=== PATIENT | male | born 1945 | race Caucasian/White ===

== ENCOUNTER 2020-08-15 16:31 | Inpatient (IN) ==
[2020-08-15] MEDS ORDERED: ONDANSETRON 4 MG/2 ML VIAL IV STA (17:27)
[2020-08-15] MEDS ORDERED: MORPHINE 4 MG/1 ML VIAL IV ONE (17:27)
[2020-08-15 18:27] LABS: Basophils # 0.1 10*3/uL (0.0-0.2); Basophils % 0.7 % (0.0-0.8); Eosinophils # 0.1 10*3/uL (0.0-0.87); Eosinophils % 1.1 % (0.00-10.9); Hematocrit 51.1 VOL% (42.0-52.0); Hemoglobin 16.8 GM/DL (14.0-18.0); Immature Granulocytes % 0.4 %; Immature Granulocytes Absolute 0.04 #; Lymphocytes # 1.4 10*3/uL (1.4-4.0); Lymphocytes % 15.7 % (21.2-54.2); Mean Corpuscular HGB Conc 32.9 GM/DL (32-36); Mean Corpuscular Volume 87.5 FL (87-102); Mean Platelet Volume 10.5 FL (9.6-12.0); Monocytes % 7.2 % (1.7-12.7); Neutrophils % 74.9 % (38.7-73.9); Platelet Count 360 T/CUMM (130-400); Red Blood Count 5.84 MC/CUMM (3.8-5.5); Red Cell Distribution Width 13.7 % (9.3-17.3); White Blood Count 9.1 T/CUMM (4-12)
[2020-08-15 18:35] LABS: INR 1.2; PT Patient Result 12.4 SECS (9.8-11.9); Partial Thromboplastin Time 25.4 SECS (23.9-33.8)
[2020-08-15 18:41] LABS: Calcium 9.7 MG/DL (8.5-10.1); Osmolality,Calculated 286.1 MOS/KG (273-304)
[2020-08-15] MEDS ORDERED: DEXTROSE 50% 25 GM/50 ML VIAL IV PRN (19:11)
[2020-08-15] MEDS ORDERED: GLUCAGON 1 MG VIAL IM PRN (19:11)
[2020-08-15] MEDS ORDERED: NON-FORMULARY MEDICATION (Naloxegol [Movantik] 25 mg Tablet) PO PRN (19:32)
[2020-08-15] MEDS ORDERED: BENZOCAINE/BUTAMBEN/TETRACAINE SPRAY 20 GM CAN TOP ONE (19:35)
[2020-08-15] MEDS: MORPHINE 4 MG/1 ML VIAL IV PRN (21:12)
[2020-08-15] MEDS: SODIUM CHLORIDE 0.45% 1,000 ML IV SCH (21:43)
[2020-08-15] MEDS: carvediloL 12.5 MG TABLET PO SCH (21:44)
[2020-08-16] MEDS: MORPHINE 4 MG/1 ML VIAL IV PRN ×2 (01:12→07:42)
[2020-08-16] MEDS: ONDANSETRON 4 MG/2 ML VIAL IV PRN (03:25)
[2020-08-16 05:39] LABS: Basophils % 0.5 % (0.0-0.8); Eosinophils # 0.1 10*3/uL (0.0-0.87); Eosinophils % 1.2 % (0.00-10.9); Hematocrit 48.4 VOL% (42.0-52.0); Hemoglobin 15.9 GM/DL (14.0-18.0); Immature Granulocytes % 0.5 %; Immature Granulocytes Absolute 0.04 #; Lymphocytes # 1.5 10*3/uL (1.4-4.0); Lymphocytes % 18.1 % (21.2-54.2); Mean Corpuscular HGB Conc 32.9 GM/DL (32-36); Mean Corpuscular Volume 88.3 FL (87-102); Mean Platelet Volume 10.6 FL (9.6-12.0); Monocytes % 8.3 % (1.7-12.7); Neutrophils % 71.4 % (38.7-73.9); Platelet Count 305 T/CUMM (130-400); Red Blood Count 5.48 MC/CUMM (3.8-5.5); Red Cell Distribution Width 13.4 % (9.3-17.3); White Blood Count 8.2 T/CUMM (4-12)
[2020-08-16 05:53] LABS: Calcium 9.5 MG/DL (8.5-10.1); Osmolality,Calculated 286.1 MOS/KG (273-304); Risk Ratio 6.08; VLDL CHOLESTEROL 29.4 MG/DL
[2020-08-16] MEDS: SODIUM CHLORIDE 0.45% 1,000 ML IV SCH ×3 (06:35→23:22)
[2020-08-16] MEDS: LINACLOTIDE 145 MCG CAPSULE PO SCH (09:00)
[2020-08-16] MEDS: EZETIMIBE 10 MG TABLET PO SCH (09:00)
[2020-08-16] MEDS ORDERED: ASPIRIN EC 81 MG TABLET PO SCH (09:00)
[2020-08-16] MEDS ORDERED: PANTOPRAZOLE 40 MG VIAL IV SCH (09:00)
[2020-08-16] MEDS ORDERED: FENOFIBRATE 145 MG TABLET PO SCH (09:00)
[2020-08-16] MEDS: FENOFIBRATE 145 MG TABLET PO SCH (09:00)
[2020-08-16] MEDS: DOCUSATE SODIUM 100 MG CAPSULE PO SCH (09:00)
[2020-08-16] MEDS: carvediloL 12.5 MG TABLET PO SCH ×2 (09:41→21:35)
[2020-08-16] MEDS ORDERED: LORazepam 2 MG/1 ML VIAL IV ONE (11:12)
[2020-08-16] MEDS ORDERED: ceFAZolin 2,000 MG in PREMIX 1 EACH IV ONE (12:00)
[2020-08-16] MEDS ORDERED: PROMETHAZINE 25 MG/1 ML VIAL IM PRN (14:39)
[2020-08-16] MEDS ORDERED: diphenhydrAMINE CAP 25 MG CAPSULE PO PRN (14:39)
[2020-08-16] MEDS ORDERED: BISACODYL 10 MG SUPP RECTAL PRN (14:39)
[2020-08-16] MEDS ORDERED: MAGNESIUM HYDROXIDE SUSP 30 ML UDCUP PO PRN (14:39)
[2020-08-16] MEDS ORDERED: LACTULOSE 20 GM/30 ML UDCUP PO PRN (14:39)
[2020-08-16] MEDS ORDERED: FLUTICASONE 50 MCG NASAL SPRAY 16 GM BOTTLE BOTH NARES PRN (14:42)
[2020-08-16] MEDS ORDERED: MORPHINE 4 MG/1 ML VIAL IV PRN (14:42)
[2020-08-16] MEDS ORDERED: LORATADINE 10 MG TABLET PO PRN (14:42)
[2020-08-16] MEDS ORDERED: ONDANSETRON 4 MG TABLET PO PRN (14:42)
[2020-08-16] MEDS ORDERED: FEXOFENADINE 180 MG TABLET PO PRN (14:42)
[2020-08-16] MEDS ORDERED: NITROGLYCERIN SL 0.4 MG TABLET SL PRN (14:42)
[2020-08-16] MEDS ORDERED: HYDROmorphone 2 MG/1 ML VIAL ONE (15:35)
[2020-08-16] MEDS: HYDROmorphone 2 MG/1 ML VIAL IV PRN ×4 (15:38→16:00)
[2020-08-16] MEDS ORDERED: LIDOCAINE 2% 5 ML VIAL ONE (15:44)
[2020-08-16] MEDS ORDERED: LACTATED RINGERS 1,000 ML IV ONE (15:45)
[2020-08-16] MEDS ORDERED: GLYCOPYRROLATE 0.4 MG/2 ML VIAL ONE (15:45)
[2020-08-16] MEDS ORDERED: fentaNYL 100 MCG/2 ML VIAL ONE (15:45)
[2020-08-16] MEDS ORDERED: ROCURONIUM 100 MG/10 ML VIAL IV ONE (15:45)
[2020-08-16] MEDS ORDERED: ETOMIDATE 40 MG/20 ML VIAL IV ONE (15:45)
[2020-08-16] MEDS ORDERED: DESFLURANE 1 UNIT/15 MINUTE INH ONE (15:45)
[2020-08-16] MEDS ORDERED: NEOSTIGMINE 10 MG/10 ML VIAL ONE (15:45)
[2020-08-16] MEDS ORDERED: ONDANSETRON 4 MG/2 ML VIAL IV PRN (15:55)
[2020-08-16 17:29] LABS: Calcium 8.9 MG/DL (8.5-10.1); Osmolality,Calculated 283.4 MOS/KG (273-304)
[2020-08-16] MEDS ORDERED: NALOXONE 0.4 MG/ML VIAL IV PRN (18:48)
[2020-08-16] MEDS: HYDROmorphone PCA 30 MG/30 ML SYRINGE IV SCH (19:40)
[2020-08-16] MEDS: ceFAZolin 1,000 MG in SYRINGE 1 EACH IV SCH (21:35)
[2020-08-16] MEDS: APIXABAN 5 MG TABLET PO SCH (21:35)
[2020-08-16] MEDS: ASPIRIN EC 81 MG TABLET PO SCH (21:35)
[2020-08-16] MEDS: PRAMIPEXOLE 0.25 MG TABLET PO SCH (21:44)
[2020-08-17] MEDS: SODIUM CHLORIDE 0.45% 1,000 ML IV SCH (03:05)
[2020-08-17] MEDS: ceFAZolin 1,000 MG in SYRINGE 1 EACH IV SCH ×2 (04:56→11:22)
[2020-08-17 06:03] LABS: Basophils % 0.3 % (0.0-0.8); Eosinophils # 0.2 10*3/uL (0.0-0.87); Eosinophils % 1.8 % (0.00-10.9); Hematocrit 43.5 VOL% (42.0-52.0); Hemoglobin 14.2 GM/DL (14.0-18.0); Immature Granulocytes % 0.4 %; Immature Granulocytes Absolute 0.04 #; Lymphocytes # 1.3 10*3/uL (1.4-4.0); Lymphocytes % 12.8 % (21.2-54.2); Mean Corpuscular HGB Conc 32.6 GM/DL (32-36); Mean Corpuscular Volume 88.6 FL (87-102); Mean Platelet Volume 10.9 FL (9.6-12.0); Monocytes % 7.1 % (1.7-12.7); Neutrophils % 77.6 % (38.7-73.9); Platelet Count 244 T/CUMM (130-400); Red Blood Count 4.91 MC/CUMM (3.8-5.5); Red Cell Distribution Width 13.5 % (9.3-17.3); White Blood Count 9.8 T/CUMM (4-12)
[2020-08-17 06:55] LABS: Calcium 9.1 MG/DL (8.5-10.1); Osmolality,Calculated 278.5 MOS/KG (273-304)
[2020-08-17] MEDS ORDERED: ROSUVASTATIN 10 MG TABLET PO SCH (09:00)
[2020-08-17] MEDS ORDERED: [UNRECOGNIZED DRUG - OTHER] PO SCH (09:00)
[2020-08-17] MEDS ORDERED: ESOMEPRAZOLE MAGNESIUM 20 MG PO SCH (09:00)
[2020-08-17] MEDS: LINACLOTIDE 145 MCG CAPSULE PO SCH (09:24)
[2020-08-17] MEDS: FENOFIBRATE 145 MG TABLET PO SCH (09:27)
[2020-08-17] MEDS: carvediloL 12.5 MG TABLET PO SCH ×2 (09:29→20:42)
[2020-08-17] MEDS: DOCUSATE SODIUM 100 MG CAPSULE PO SCH (09:30)
[2020-08-17] MEDS: PANTOPRAZOLE 40 MG TABLET PO SCH (09:30)
[2020-08-17] MEDS: EZETIMIBE 10 MG TABLET PO SCH (10:03)
[2020-08-17] MEDS: APIXABAN 5 MG TABLET PO SCH ×2 (10:03→20:42)
[2020-08-17] MEDS: LACTATED RINGERS 1,000 ML IV SCH ×2 (11:37→11:38)
[2020-08-17 14:17] LABS: Bacteria,Urine Occasional /HPF (Few); Blood, Urine Small mg/dL (Negative); Glucose,Urine (UA) Negative (Negative); Hyaline Casts,Urine 1 /LPF (0-3); Ketones,Urine Negative (Negative); Mucus,Urine Occasional /LPF (Occasional); Nitrite,Urine Negative (Negative); Protein,Urine Negative; RBC,Urine 8 /HPF (0-4); Squamous Epithelial Cell,Urine Occasional /HPF (0-10); Urine Appearance CLEAR (Clear); Urine Color Amber (Yellow); Urine Specific Gravity 1.026 (1.001-1.035); WBC,Urine 25 /HPF (0-6)
[2020-08-17 14:25] LABS: Bilirubin,Urine Small mg/dL (Negative)
[2020-08-17] MEDS: PRAMIPEXOLE 0.25 MG TABLET PO SCH (16:57)
[2020-08-17] MEDS: HYDROmorphone PCA 30 MG/30 ML SYRINGE IV SCH (17:42)
[2020-08-17] MEDS: ONDANSETRON 4 MG/2 ML VIAL IV PRN (19:40)
[2020-08-17] MEDS: ASPIRIN EC 81 MG TABLET PO SCH (20:42)
[2020-08-18 04:36] LABS: Basophils % 0.5 % (0.0-0.8); Eosinophils # 0.2 10*3/uL (0.0-0.87); Eosinophils % 2.3 % (0.00-10.9); Hemoglobin 13.1 GM/DL (14.0-18.0); Immature Granulocytes % 0.6 %; Immature Granulocytes Absolute 0.05 #; Lymphocytes # 1.3 10*3/uL (1.4-4.0); Lymphocytes % 15.1 % (21.2-54.2); Mean Corpuscular HGB Conc 32.8 GM/DL (32-36); Mean Corpuscular Volume 88.5 FL (87-102); Mean Platelet Volume 11.5 FL (9.6-12.0); Monocytes % 8.4 % (1.7-12.7); Neutrophils % 73.1 % (38.7-73.9); Platelet Count 191 T/CUMM (130-400); Red Blood Count 4.52 MC/CUMM (3.8-5.5); Red Cell Distribution Width 13.5 % (9.3-17.3); White Blood Count 8.3 T/CUMM (4-12)
[2020-08-18 05:01] LABS: Osmolality,Calculated 273.8 MOS/KG (273-304)
[2020-08-18] MEDS ORDERED: DOXYCYCLINE HYCLATE 100 MG CAPSULE PO SCH (09:00)
[2020-08-18] MEDS: DOCUSATE SODIUM 100 MG CAPSULE PO SCH (09:56)
[2020-08-18] MEDS: carvediloL 12.5 MG TABLET PO SCH ×2 (09:56→21:09)
[2020-08-18] MEDS: APIXABAN 5 MG TABLET PO SCH ×2 (09:57→21:09)
[2020-08-18] MEDS: PANTOPRAZOLE 40 MG TABLET PO SCH (09:57)
[2020-08-18] MEDS: FENOFIBRATE 145 MG TABLET PO SCH (09:57)
[2020-08-18] MEDS: EZETIMIBE 10 MG TABLET PO SCH (09:58)
[2020-08-18] MEDS ORDERED: LINACLOTIDE 145 MCG CAPSULE PO PRN (10:00)
[2020-08-18] MEDS: LINACLOTIDE 145 MCG CAPSULE PO SCH (11:02)
[2020-08-18] MEDS: PRAMIPEXOLE 0.25 MG TABLET PO SCH (15:57)
[2020-08-18] MEDS: LACTATED RINGERS 1,000 ML IV SCH (17:58)
[2020-08-18] MEDS: MORPHINE 4 MG/1 ML VIAL IV PRN (21:09)
[2020-08-18] MEDS: ASPIRIN EC 81 MG TABLET PO SCH (21:09)
[2020-08-19] MEDS: MORPHINE 4 MG/1 ML VIAL IV PRN ×2 (01:45→09:16)
[2020-08-19] MEDS: LACTATED RINGERS 1,000 ML IV SCH (05:15)
[2020-08-19] MEDS: FENOFIBRATE 145 MG TABLET PO SCH (09:17)
[2020-08-19] MEDS: carvediloL 12.5 MG TABLET PO SCH (09:18)
[2020-08-19] MEDS: DOCUSATE SODIUM 100 MG CAPSULE PO SCH (09:18)
[2020-08-19] MEDS: APIXABAN 5 MG TABLET PO SCH (09:18)
[2020-08-19] MEDS: PANTOPRAZOLE 40 MG TABLET PO SCH (09:18)
[2020-08-19] MEDS: EZETIMIBE 10 MG TABLET PO SCH (11:08)
[2020-08-19 11:26] VITALS: BP 120/79
[2020-08-19] MEDS: ONDANSETRON 4 MG/2 ML VIAL IV PRN (12:00)
== END 2020-08-19 15:00 | disposition swing bed (61) | DRG 481 ==
LOC: EDUNIT# → EDBD → N.ED 16:31 → N.EDINP 19:11 → N.3E 20:38
PROVIDERS: ADMIT Emergency Medicine; ATTEND Emergency Medicine